=== PATIENT | male | born 1955 | race Caucasian/White ===

== ENCOUNTER 2016-01-28 12:47 | Outpatient (RCR) | payer MEDICAID | END 2016-04-27 | disposition home or self-care (01) | LOC: LAB 12:47 | PROVIDERS: ATTEND Internal Medicine Cardiovascular Disease | DX: I48.91 Unspecified atrial fibrillation (principal) | CPT/HCPCS: 36415; 85610 ==

== ENCOUNTER → 2016-03-26 | Outpatient (CLI) | payer OTHER | LOC: LAB 13:55 | PROVIDERS: ATTEND Internal Medicine Cardiovascular Disease | DX: I48.91 Unspecified atrial fibrillation (principal) | CPT/HCPCS: 36415; 85610 ==

== ENCOUNTER 2016-04-23 11:39 | Emergency (ER) | payer OTHER ==
[~2016-04-23] VITALS: Ht 185.4 cm; Wt 115.9 kg
[2016-04-23] MEDS ORDERED: ONDANSETRON 2 MG/ML (Z0FRAN) 2 ML VIAL IV ONE (12:25)
[2016-04-23] MEDS ORDERED: HYDROmorphone 1 MG/ML (DILAUDID) SYRINGE IV ONE (12:25)
--- NOTE | 2016-04-23 12:38 | NUR ---
PT UNABLE TO VOID AT THIS TIME. CL
[2016-04-23 12:53] LABS: BASOPHILS % (AUTO) 0 % (0-2); EOSINOPHILS % (AUTO) 1 % (0-4); LYMPHOCYTES # (AUTO) 0.6 X10^3; MEAN CORPUSCULAR VOLUME 92 FL (80-100); MEAN PLATELET VOLUME 9.7 FL (6.0-9.5); MONOCYTES # (AUTO) 0.9 X10^3; MONOCYTES % (AUTO) 11 % (3-11); NEUTROPHILS # (AUTO) 6.2 X10^3; NEUTROPHILS % (AUTO) 80 % (51-67); PLATELET COUNT 189 10^3uL (150-450); WHITE BLOOD COUNT 7.71 10^3uL (4.0-11.0)
[2016-04-23 13:00] LABS: MEAN CORPUSCULAR HEMOGLOBIN 32.9 PG (26.0-34.0); MEAN CORPUSCULAR HGB CONC 35.8 g/dL (31.0-37.0)
[2016-04-23 13:05] LABS: ALBUMIN 4.2 g/dL (3.4-5.0); ANION GAP 16.5 MEQ/L (3-15); CALCULATED IONIZED CALCIUM 3.9 mg/dL (3.8-4.6); TOTAL PROTEIN 7.9 g/dL (6.4-8.5)
--- NOTE | 2016-04-23 13:39 | NUR ---
pt attempted to urinate in urinal & unable to do so at this time. at bedside. cl
--- NOTE | 2016-04-23 15:39 | NUR ---
DR DEL ROSARIO TALKS TO DR HELM RE PT. CL
--- NOTE | 2016-04-23 15:53 | NUR ---
DR MIGUEL ÁNGEL DE LA CRUZ PTS [employer]. CL
--- NOTE | 2016-04-23 16:13 | NUR ---
PT CONT TO REQUEST ORAL FLUIDS. MOUTH SWAB OFFERED. PT CONT UNABLE TO VOID. CL
[2016-04-23] MEDS ORDERED: ENOXAPARIN 120 MG/0.8 ML (LOVENOX) SYR SC ONE (17:00)
[2016-04-23 17:15] VITALS: BP 126/79
== END 2016-04-23 17:30 | disposition home or self-care (01) ==
LOC: ED 11:41
DX: I99.8 Other disorder of circulatory system (principal); M79.89 Other specified soft tissue disorders; M79.642 Pain in left hand; M79.632 Pain in left forearm; M79.622 Pain in left upper arm; I50.9 Heart failure, unspecified; Z79.01 Long term (current) use of anticoagulants; Z79.899 Other long term (current) drug therapy
CPT/HCPCS: 36415; 71010; 71275; 80053; 80162; 82550; 82553; 83605; 83880; 84443; 84484; 85025; 85379; 85610; 86140; 93931; 93971; 96372; 96374; 96375; 99285; J1170; J1650; J2405; Q9967; 99284

== ENCOUNTER → 2016-05-02 | Outpatient (CLI) | payer OTHER ==
[2016-05-02 12:25] LABS: ANION GAP 11.6 MEQ/L (3-15)
== END ==
LOC: LAB 11:49
PROVIDERS: ATTEND Surgery
DX: Z51.81 Encounter for therapeutic drug level monitoring (principal); Z79.01 Long term (current) use of anticoagulants; N28.9 Disorder of kidney and ureter, unspecified
CPT/HCPCS: 36415; 80048; 85610

== ENCOUNTER → 2016-05-06 | Outpatient (REF) | payer OTHER ==
[2016-05-06 13:03] LABS: ANION GAP 14.2 MEQ/L (3-15)
== END ==
LOC: LAB 11:25
PROVIDERS: ATTEND Family Medicine
DX: I42.0 Dilated cardiomyopathy (principal); I48.2 Chronic atrial fibrillation; Z87.39 Personal history of other diseases of the musculoskeletal system and connective tissue
CPT/HCPCS: 80048; 85610

== ENCOUNTER → 2016-05-13 | Outpatient (REF) | payer OTHER | LOC: LAB 10:48 | PROVIDERS: ATTEND Family Medicine | DX: I48.2 Chronic atrial fibrillation (principal); I10 Essential (primary) hypertension | CPT/HCPCS: 80048; 85610 ==

== ENCOUNTER → 2016-05-20 | Outpatient (REF) | payer OTHER ==
[2016-05-20 13:25] LABS: ANION GAP 12.8 MEQ/L (3-15)
== END ==
LOC: LAB 11:58
PROVIDERS: ATTEND Family Medicine
DX: I50.21 Acute systolic (congestive) heart failure (principal); I42.0 Dilated cardiomyopathy; Z87.39 Personal history of other diseases of the musculoskeletal system and connective tissue; I10 Essential (primary) hypertension; I48.2 Chronic atrial fibrillation
CPT/HCPCS: 80048; 80162

== ENCOUNTER → 2016-06-03 | Outpatient (REF) | payer OTHER ==
[~2016-06-03] MED LIST: ASPI-860 PO; CARV25TA30 PO; CEFU500T PO; DIGO250T PO; FURO80TA84 PO; HYDR-3702 PO; HYDR-3811 PO; NAPR500T3 PO; NFLOSA25TA PO; PRED20TA PO; SPIR25TA PO; TORS10TA5 PO; WARF4TAB PO; WARF4TAB7 PO
== END ==
LOC: LAB 12:06
PROVIDERS: ATTEND Family Medicine
DX: Z87.39 Personal history of other diseases of the musculoskeletal system and connective tissue (principal); I48.2 Chronic atrial fibrillation
CPT/HCPCS: 84550; 85610

== ENCOUNTER → 2016-06-12 | Outpatient (CLI) | payer OTHER | LOC: LAB 12:12 | PROVIDERS: ATTEND Family Medicine | DX: I48.2 Chronic atrial fibrillation (principal) | CPT/HCPCS: 36415; 85610 ==

== ENCOUNTER → 2016-06-16 | Outpatient (CLI) | payer OTHER | LOC: LAB 12:01 | PROVIDERS: ATTEND Family Medicine | DX: I48.2 Chronic atrial fibrillation (principal) | CPT/HCPCS: 36415; 85610 ==

== ENCOUNTER → 2016-06-23 | Outpatient (CLI) | payer OTHER | LOC: LAB 12:01 | PROVIDERS: ATTEND Family Medicine | DX: I48.2 Chronic atrial fibrillation (principal) | CPT/HCPCS: 36415; 85610 ==

== ENCOUNTER → 2016-06-27 | Outpatient (CLI) | payer OTHER | LOC: LAB 12:53 | PROVIDERS: ATTEND Family Medicine | DX: I48.2 Chronic atrial fibrillation (principal) | CPT/HCPCS: 36415; 85610 ==

== ENCOUNTER → 2016-07-08 | Outpatient (CLI) | payer OTHER | LOC: LAB 13:15 | PROVIDERS: ATTEND Internal Medicine Rheumatology | DX: I48.2 Chronic atrial fibrillation (principal); I10 Essential (primary) hypertension; Z86.39 Personal history of other endocrine, nutritional and metabolic disease; R73.9 Hyperglycemia, unspecified; D69.1 Qualitative platelet defects | CPT/HCPCS: 36415; 80048; 83036; 85049; 85610 ==